=== PATIENT | female | born 1990 | race American Indian/Alaskan Native ===

== ENCOUNTER 2017-07-08 07:16 | Emergency (ER) | payer SELFPAY ==
[2017-07-08 07:26] VITALS: BP 114/72
[2017-07-08 08:06] LABS: Bacteria,Urine 1+ /HPF (Negative); Bilirubin,Urine NEG (Negative); Blood,Urine NEG (Negative); Ketones,Urine NEG (Negative); Leukocyte Esterase,Urine SM (Negative); Mucus,Urine 3+ /HPF; Nitrite,Urine NEG (Negative); Protein,Urine <15 mg/dL mg/dL (Negative); Urobilinogen,Urine < 2.0 mg/dL (<2.0)
[2017-07-08] MEDS ORDERED: ZITHROMAX PO ONE (09:23)
[2017-07-08] MEDS ORDERED: XYLOCAINE 1% MPF 5 mL INFILTRATI ONE (09:23)
[2017-07-08] MEDS ORDERED: ROCEPHIN IM ONE (09:23)
--- NOTE | 2017-07-08 09:28 | Emergency Department Report ---
ED Dysuria HPI - HPI Chief Complaint: Urogenital-Female Stated Complaint: vag outbreak preg Time Seen by Provider: 07/08/17 07:32 Duration: 3 Days Location of Discomfort: Other Severity: Mild Symptoms: Dysuria: Yes, Frequency: No, Suprapubic Pain: No, Flank Pain: No, Fever: No, Hematuria: No, Abdominal Pain: No, Previous UTI's: No ED Review of Systems ROS: Stated complaint: vag outbreak preg Other details as noted in HPI Comment: All other systems reviewed and negative Gastrointestinal: other (5 w preg; no lobby concierge care; ; no abd pain; no vag bleed; concern her bf gave her std bc she caught him cheating.). denies: abdominal pain, nausea, vomiting, diarrhea, constipation, hematemesis, melena, hematochezia Genitourinary: urgency, discharge ED Past Medical Hx - Past Medical History Hx Hypertension: No Hx Congestive Heart Failure: No Hx Diabetes: No Hx Deep Vein Thrombosis: No Hx Renal Disease: No Hx Sickle Cell Disease: No Hx Seizures: No Hx Asthma: No Hx COPD: No - Surgical History Additional Surgical History: cercalage prior . c-sections x2 - Social History Smoking Status: Current Every Day Smoker Substance Use Type: None - Medications Home Medications: Home Medications Medication Instructions Recorded Confirmed Last Taken Type metroNIDAZOLE [Flagyl] 500 mg PO Q12HR #14 tab 07/08/17 Unknown Rx Dysuria Exam - Exam General: Vital signs noted. No distress. Alert and acting appropriately. Exam: Yes Moist Mucous Membranes, No CVA Tenderness, No Abdominal Tenderness, No Rigidity or Guarding Exam: fht 156 on exam. pelvic w pearly white dc at cervix. no odor. concern for std exp. 5 w preg. no vag bleed. os closed. no abd pain Labs: Lab Results 07/08/17 Range/Units 03:49 Urine Color Yellow (Yellow) Urine Turbidity Clear (Clear) Urine pH 5.0 (5.0-7.0) Ur Specific [place] 1.024 (1.003-1.030) Urine Protein <15 mg/dl (Negative) mg/dL Urine Glucose (UA) Neg (Negative) mg/dL Urine Ketones Neg (Negative) mg/dL Urine Blood Neg (Negative) Urine Nitrite Neg (Negative) Urine Bilirubin Neg (Negative) Urine Urobilinogen < 2.0 (<2.0) mg/dL Ur Leukocyte Esterase Sm (Negative) Urine WBC (Auto) 34.0 H (0.0-6.0) /HPF Urine RBC (Auto) 2.0 (0.0-6.0) /HPF U Epithel Cells (Auto) 3.0 (0-13.0) /HPF Urine Bacteria (Auto) 1+ (Negative) /HPF Urine Mucus 3+ /HPF ED Course Vital Signs 07/08/17 07:22 Temperature 98.7 F Pulse Rate 113 H Respiratory 18 Rate Blood Pressure 114/72 O2 Sat by Pulse 97 Oximetry - Reevaluation(s) Reevaluation #1: 07/08/17 09:34 to er w std exp non toxic no vag bleed 5 w preg lmp mid oct waiting on medicaid card caught bf cheating w his co worker pelvic completed given hx and type of dc will tx empir. for gc results not back today ED Medical Decision Making - Medical Decision Making see note - Differential Diagnosis uti v std Critical care attestation.: If time is entered above; I have spent that time in minutes in the direct care of this critically ill patient, excluding procedure time. ED Disposition Clinical Impression: Vaginitis, STD (female), Bacterial vaginitis, Disposition: DC-01 TO HOME OR SELFCARE Is pt being admited?: No Does the pt Need Aspirin: No Condition: Stable Instructions: Bacterial Vaginosis (ED) Additional Instructions: safe sex Prescriptions: metroNIDAZOLE [Flagyl] 500 mg PO Q12HR #14 tab Referrals: PRIMARY MD VIVIAN [Primary Care Provider] - 3-5 Days SALVATORE ALVARADO MD [Referring] - 3-5 Days MARIELA GA MD [Referring] - 3-5 Days SAEID DE LA TORRE MD [Referring] - 3-5 Days Forms: STI Treatment and Prevention Time of Disposition: 09:26
== END 2017-07-08 09:55 | disposition home or self-care (01) ==
LOC: ED 07:16
DX: O23.591 Infection of other part of genital tract in pregnancy, first trimester (principal); N76.0 Acute vaginitis; F17.200 Nicotine dependence, unspecified, uncomplicated; Z3A.01 Less than 8 weeks gestation of pregnancy
CPT/HCPCS: 81001; 87210; 96372; 99284; J0696; 87591

== ENCOUNTER 2018-01-17 01:38 | Outpatient (CLI) | payer OTHER ==
[2018-01-17] MEDS ORDERED: LACTATED RINGERS 1,000 ML IV ONE (01:59)
[2018-01-17 02:05] VITALS: BP 110/57
[2018-01-17 02:52] LABS: Bacteria,Urine 2+ /HPF (Negative); Bilirubin,Urine NEG (Negative); Blood,Urine NEG (Negative); Color,Urine Yellow (Yellow); Mucus,Urine FEW /HPF; Protein,Urine <15 mg/dL mg/dL (Negative)
== END 2018-01-17 03:13 | disposition home or self-care (01) ==
LOC: TRG 01:38
PROVIDERS: ATTEND Obstetrics & Gynecology
DX: O62.9 Abnormality of forces of labor, unspecified (principal); Z3A.34 34 weeks gestation of pregnancy; Z87.891 Personal history of nicotine dependence
CPT/HCPCS: 59025; 81001